=== PATIENT | female | born 1960 | race Caucasian/White ===

== ENCOUNTER 2017-06-18 07:44 | Day surgery (SDC) | payer BC ==
[2017-06-18 08:08] VITALS: BMI 36.1
[2017-06-18] MEDS ORDERED: PROPOFOL 20 ML ONE ×2 (09:11)
[2017-06-18 10:01] VITALS: TEMP 97.8
[2017-06-18 11:11] VITALS: BP 114/55; PULSE 47
--- NOTE | 2017-06-19 13:42 | PATH ---
Surgical Pathology Report Patient Name: LISSETTE FELTON [facility]. Rec. #: [id number] /Age/Gender: 1960 (Age: 57) / F Account: [id number] Location: U-ENDOSCOPY Taken: 06/18/2017 Received: 06/18/2017 Reported: 06/19/2017 Physicians: lEla Ruelas M.D. Specimen(s) Received A: BX PROXIMAL TRANSVERSE COLON POLYP B: BX RECTAL POLYP Clinical History Preoperative diagnosis: Screening Postoperative diagnosis: Diverticulosis, proximal transverse colon polyp and rectal polyp Final Diagnosis A. PROXIMAL TRANSVERSE COLON, POLYPS, BIOPSY: HYPERPLASTIC POLYPS. B. RECTUM, POLYP, BIOPSY: HYPERPLASTIC POLYP. Electronically Signed Maricel Lopez M.D. Gross Description A. Received in formalin, labeled "proximal transverse colon polyps" are 4 eaton, irregular portions of soft tissue ranging from 0.1-0.4 cm. in greatest dimension. The specimens are submitted in toto in one cassette. B. Received in formalin, labeled "biopsy rectal polyp" are 4 eaton, irregular portions of soft tissue ranging from 0.1-0.3 cm. in greatest dimension. The specimens are submitted in toto in one cassette. /06/18/2017 saudi06/18/2017
== END 2017-06-18 11:11 | disposition home or self-care (01) ==
LOC: JASU-ENDO 07:44
PROVIDERS: ATTEND Internal Medicine Gastroenterology
PROC: 0DBL8ZX Excision of Transverse Colon, Via Natural or Artificial Opening Endoscopic, Diagnostic (ICD-10-PCS; 2017-06-18)
PROC: 0DBP8ZX Excision of Rectum, Via Natural or Artificial Opening Endoscopic, Diagnostic (ICD-10-PCS; principal; 2017-06-18 09:00)
DX: Z12.11 Encounter for screening for malignant neoplasm of colon (principal); K63.5 Polyp of colon; K62.1 Rectal polyp; K57.30 Diverticulosis of large intestine without perforation or abscess without bleeding
CPT/HCPCS: 88305-TC

== ENCOUNTER 2018-11-13 12:49 | Inpatient (IN) | payer BC ==
[2018-11-13 13:20] VITALS: BMI 71.8
--- NOTE | 2018-11-13 13:23 | PDOC ---
History of Present Illness - General Chief Complaint: Irregular Heart Beat Stated Complaint: Abnormal Lab Results (Outside) Time Seen by Provider: 11/13/18 13:22 History Source: Patient Exam Limitations: No Limitations - History of Present Illness Initial Comments: 58 yo F w a hx of CAD, [place]-2000, hypothyroidism, HTN, and HLD presents to the ER from nuclear radiology secondary to results of an abnormal nuclear stress test which determined the patient has a large jennifer-lateral and inferior reversible ischemic perfusion defect. During the stress test, the patient experienced several runs of non-sustained V-Tach and was subsequently sent to the ER to be evaluated. The patient was receiving this stress test for Pre-Op cardiac clearance for an elective orthopedic surgery on her right ankle. The patient has been asymptomatic other than occasional palpitations. She denies having any recent chest pain, SOB, difficulty breathing, ankle/leg swelling, orthopnea, syncope, dyspnea on exertion, lightheadedness, or chest pain with physical activity PCP: Dr. Parker Lighting Fixture Installer: Formerly Charles. Hasn't seen a doc in 15 years. Allergies: NKA, NKDA Social Hx: Denies smoking, drinking, or other substance usage. PSH: Appendectomy Past History - Past Medical History Allergies/Adverse Reactions: Allergies Allergy/AdvReac Type Severity Reaction Status Date / Time No Known Allergies Allergy Verified 06/25/11 14:56 Home Medications: Ambulatory Orders Aspirin [ASA -] 325 mg PO ONCE 12/24/13 Levothyroxine [Synthroid -] 112 mcg PO DAILY 12/24/13 Metoprolol Succinate [Toprol Xl] 50 mg PO DAILY 12/24/13 Rosuvastatin Calcium [Crestor] 40 mg PO DAILY 12/24/13 Cholecalciferol (Vitamin D3) [Vitamin D3] 1,000 unit PO DAILY 06/18/17 Losartan 50Mg/Hctz 12.5MG [Hyzaar -] 1 tab PO DAILY 06/18/17 Cardiac Disorders: Yes ([place] (2003)) HTN: Yes Hypercholesterolemia: Yes Seizures: Yes - Surgical History Appendectomy: Yes - Immunization History Td Vaccination: No (UNKNOWN) - Suicide/Smoking/Psychosocial Hx Smoking Status: Yes Smoking History: Never smoked Have you smoked in the past 12 months: No Number of Cigarettes Smoked Daily: 20 'Breaking Loose' booklet given: 06/18/17 Hx Alcohol Use: No Drug/Substance Use Hx: No Substance Use Type: None Review of Systems - Review of Systems Able to Perform ROS?: Yes Comments:: CONSTITUTIONAL: No fever, no chills, no fatigue EYES: No visual changes ENT: No ear pain, no sore throat CARDIOVASCULAR: No chest pain, + palpitations RESPIRATORY: No cough, no SOB GI: No abdominal pain, no nausea, no vomiting, no constipation, no diarrhea GENITOURINARY: No dysuria, no frequency, no hematuria MUSKULOSKELETAL: No backpain, + joint pain, no myalgias SKIN: No rash NEURO: No headache *Physical Exam - Vital Signs Last Vital Signs Temp Pulse Resp BP Pulse Ox 97.9 F 50 L 20 175/58 H 100 11/13/18 12:53 11/13/18 12:53 11/13/18 12:53 11/13/18 12:53 11/13/18 12:53 - Physical Exam Comments: CONSTITUTIONAL: Well-appearing; well-nourished; in no apparent distress HEAD: Normocephalic; atraumatic EYES: PERRL; EOM intact ENMT: External appears normal; normal oropharynx NECK: Supple; non-tender; no cervical lymphadenopathy CARD: There is an S4 Gallop. Bradycardic rate, regular rhythm. RESP: CTAB. No wheezes, rhonchi, or rales ABD: Soft, non-distended; non-tender; no palpable organomegaly, no palpable hernias EXT: Normal ROM in all four extremities; non-tender to palpation; distal pulses intact SKIN: Warm, dry, no rash NEURO: No focal neurological deficiencies. ED Treatment Course - LABORATORY CBC & Chemistry Diagram: 11/13/18 14:10 11/13/18 14:10 Medical Decision Making - Medical Decision Making 58 yo F w a hx of CAD, [place]-2001, hypothyroidism, HTN, and HLD presents to the ER from nuclear radiology secondary to results of an abnormal nuclear stress test which determined the patient has a large jennifer-lateral and inferior reversible ischemic perfusion defect. During the stress test, the patient experienced several runs of non-sustained V-Tach and was subsequently sent to the ER to be evaluated. VS: bradycardic and hypertensive. MDM: Given this patient's perfusion defect this implies she needs a catheterization to resolve her reversible ischemic perfusion defect. Plan: Labs, EKG, Cardio consult, Admit. - Will discuss with PCP and pricing associate when patient should be given a cath for reperfusion. Cardio consult: Spoke with Dr. holguin who agrees patient needs a cath at some point. Recommends admission to the hospital. Spoke with Keith who accepted patient for admission. *DC/Admit/Observation/Transfer Diagnosis at time of Disposition: Myocardial perfusion defect, Ventricular tachycardia, non-sustained - Discharge Dispostion Condition at time of disposition: Stable Decision to Admit order: Yes - Referrals - Patient Instructions - Post Discharge Activity
--- NOTE | 2018-11-13 14:15 | PDOC ---
Documentation entered by Oscar Garces SCRIBE, acting as scribe for Reid Torres MD. Reid Torres MD: This documentation has been prepared by the Dez johnston Elijah, SCRIBE, under my direction and personally reviewed by me in its entirety. I confirm that the documentation accurately reflects all work, treatment, procedures, and medical decision making performed by me. Attending Attestation - Resident Resident Name: Bhupinder Bui - ED Attending Attestation I have performed the following: I have examined & evaluated the patient, The case was reviewed & discussed with the resident, I agree w/resident's findings & plan - HPI HPI: 11/13/18 14:18 The patient is a 58 year old female, with a significant PMH of CAD, hypothyroidism, Hypertension, Hyperlipidemia and [place]-2001 who presents to the ED results from an abnormal stress test. The patient has had multiple episodes of non-sustained V-Tach. While in the ED the patients only complains of some palpitations. The patient denies chest pain, shortness of breath, headache and dizziness. Denies fever, chills, nausea, vomiting, diarrhea and constipation. Denies dysuria, frequency, urgency and hematuria. Allergies: NKA - Physicial Exam PE: 11/13/18 14:13 patient is awake and alert, obese, in no distress normocephalic and atraumatic PERRLA, EOMI No JVD CTA RRR Lower extremity edema - Medical Decision Making 11/13/18 14:14 58-year-old female with history of CAD, hypertension, hypercholesterolemia referred to the ER from the cardiology department for a positive nuclear perfusion test and a run of nonsustained V. tach while undergoing preop for a surgical procedure. In the ER, patient is mildly hypertensive, bradycardic with a heart rate of 51, and is currently asymptomatic. EKG reveals sinus bradycardia without evidence of acute ischemia. Given the nuclear perfusion test findings and the presence of nonsustained ventricular tachycardia, will consult cardiology, will admit to telemetry.
[2018-11-13 14:38] LABS: INR 0.99 (0.83-1.09); PROTHROMBIN TIME (PATIENT) 11.7 SEC (9.7-13.0)
[2018-11-13 14:41] LABS: BASO % 0.4 % (0-2.0); EOS % 1.4 % (0-4.5); HEMATOCRIT 38.2 % (32.4-45.2); HEMOGLOBIN 12.4 GM/dL (10.7-15.3); LYMPH % 29.3 % (8-40); MCH 31.3 pg (25.7-33.7); MCHC 32.6 g/dl (32.0-36.0); MEAN CELL VOLUME 96.1 fl (80-96); MONO % 6.7 % (3.8-10.2); NEUT % 62.2 % (42.8-82.8); PLATELET COUNT 261 K/MM3 (134-434); RBC 3.97 M/mm3 (3.60-5.2); RDW 13.9 % (11.6-15.6); WHITE BLOOD COUNT 12.1 K/mm3 (4.0-10.0)
[2018-11-13] MEDS ORDERED: ALPRAZolam 0.25 MG TABLET PO ONE (14:58)
[2018-11-13 15:18] LABS: ALBUMIN 3.7 g/dl (3.4-5.0); ALK PHOS 60 U/L (45-117); ANION GAP 6 MMOL/L (8-16); BILIRUBIN,TOTAL 0.3 mg/dL (0.2-1); BLOOD UREA NITROGEN 12.9 mg/dL (7-18); CHLORIDE 110 mmol/L (98-107); CO2 27 mmol/L (21-32); CREATININE 0.6 mg/dL (0.55-1.3); GLUCOSE,RANDOM 129 mg/dL (74-106); MAGNESIUM 2.2 mg/dL (1.8-2.4); N-TERMINAL BNP 182.8 pg/ml (5-125); SGOT/AST 15 U/L (15-37); SGPT/ALT 23 U/L (13-61); SODIUM 143 mmol/L (136-145); TOT PROT 6.6 g/dl (6.4-8.2)
--- NOTE | 2018-11-13 15:30 | CON.CARD ---
Consult Consult Specialty:: Cardioglogy Reason for Consultation:: CAD - History of Present Illness Chief Complaint: Positive nuclear stress test History of Present Illness: This is a 58 year old female with a PMH significant for hypothyroidism, Hypertension, Hyperlipidemia, and smoking (continues to smoke). She has known CAD and is s/p [place] in 2000. She has a cardiac cath in [address] [facility] and she was told she had a "branch that was blocked," no stent was placed. She is in need of ankle surgery to repair a ligament and a tendon. As part of the pre-op evaluation she had a Lexiscan. During regadenosone infusion she became extremely symptomatic and had multiple runs of NSVT. The scan showed a large jennifer-lateral and an inferior reversible perfusion defect. Given the above we will transfer her to [facility] for a cardiac cath. - Alcohol/Substance Use Hx Alcohol Use: No - Smoking History Smoking history: Never smoked Have you smoked in the past 12 months: No Aproximately how many cigarettes per day: 20 Home Medications - Allergies Allergies/Adverse Reactions: Allergies Allergy/AdvReac Type Severity Reaction Status Date / Time No Known Allergies Allergy Verified 06/25/11 14:56 - Home Medications Home Medications: Ambulatory Orders Aspirin [ASA -] 325 mg PO ONCE 12/24/13 Levothyroxine [Synthroid -] 112 mcg PO DAILY 12/24/13 Metoprolol Succinate [Toprol Xl] 50 mg PO DAILY 12/24/13 Rosuvastatin Calcium [Crestor] 40 mg PO DAILY 12/24/13 Cholecalciferol (Vitamin D3) [Vitamin D3] 1,000 unit PO DAILY 06/18/17 Losartan 50Mg/Hctz 12.5MG [Hyzaar -] 1 tab PO DAILY 06/18/17 Review of Systems Unable to obtain ROS, reason: As per HPI Vital Signs: Vital Signs Temperature 97.9 F 11/13/18 12:53 Pulse Rate 50 L 11/13/18 12:53 Respiratory Rate 20 11/13/18 12:53 Blood Pressure 175/58 H 11/13/18 12:53 O2 Sat by Pulse Oximetry (%) 100 11/13/18 12:53 Constitutional: Yes: Well Nourished, No Distress Eyes: Yes: WNL HENT: Yes: WNL Neck: Yes: WNL Respiratory: Yes: Regular Gastrointestinal: Yes: Soft Cardiovascular: Yes: Regular Rate and Rhythm (NL S1S2 No MRHG) Extremities: Yes: WNL (Brace on right ankle) Edema: No Neurological: Yes: Alert, Oriented - Other Data Labs, Other Data: CBC, BMP 11/13/18 14:10 11/13/18 14:10 INR, PTT INR 0.99 (0.83-1.09) 11/13/18 14:10 Troponin, BNP 11/13/18 14:10 Troponin I < 0.02 B-Natriuretic Peptide 182.8 H Troponin, BNP 11/13/18 14:10 Troponin I < 0.02 B-Natriuretic Peptide 182.8 H Assessment/Plan 58 year old female with a PMH significant for hypothyroidism, Hypertension, Hyperlipidemia, and smoking (continues to smoke). She has known CAD and is s/p [place] in [place]. She has a cardiac cath in [address] [facility] and she was told she had a "branch that was blocked," no stent was placed. She is in need of ankle surgery to repair a ligament and a tendon. As part of the pre-op evaluation she had a Lexiscan. During regadenosone infusion she became extremely symptomatic and had multiple runs of NSVT. The scan showed a large jennifer-lateral and an inferior reversible perfusion defect. Given the above we will transfer her to [facility] for a cardiac cath. I spoke to the triage team at [facility] [phone] and they are working on bed availability. Continue at home meds ASA/Metoprolol/Losartan/Crestor/Synthroid
[2018-11-13] MEDS ORDERED: ALPRAZolam 0.25 MG TABLET ONE (15:37)
--- NOTE | 2018-11-13 16:51 | HP ---
Admitting History and Physical - Primary Care Physician PCP: Aria Parker - Admission History of Present Illness: Patient is a 58 y/o female patient with past medical history of [place] 2000, Hypothyroidism, HTN, HLD, and smoking. Patient had a stress test done today for cardiac clearance for R ankle surgery. During stress test when she was receiving the infusion patient was noted with runs of v-tach. The scan also showed large jennifer-lateral and inferior reversible perfusion defect. Prior to stress test today patient denied chest pain, SOB, dyspnea, or CHASE. History Source: Patient Limitations to Obtaining History: No Limitations - Past Medical History Cardiovascular: Yes: HTN, Hyperlipdemia, [place] (2000) Endocrine: Yes: Hypothyroidism - Past Surgical History Past Surgical History: Yes: Appendectomy - Smoking History Smoking history: Never smoked Have you smoked in the past 12 months: No Aproximately how many cigarettes per day: 20 - Alcohol/Substance Use Hx Alcohol Use: No - Social History Usual Living Arrangement: Yes: With Spouse ADL: Independent History of Recent Travel: No Home Medications - Allergies Allergies/Adverse Reactions: Allergies Allergy/AdvReac Type Severity Reaction Status Date / Time No Known Allergies Allergy Verified 06/25/11 14:56 - Home Medications Home Medications: Ambulatory Orders Aspirin [ASA -] 325 mg PO ONCE 12/24/13 Levothyroxine [Synthroid -] 112 mcg PO DAILY 12/24/13 Metoprolol Succinate [Toprol Xl] 50 mg PO DAILY 12/24/13 Rosuvastatin Calcium [Crestor] 40 mg PO DAILY 12/24/13 Cholecalciferol (Vitamin D3) [Vitamin D3] 1,000 unit PO DAILY 06/18/17 Losartan 50Mg/Hctz 12.5MG [Hyzaar -] 1 tab PO DAILY 06/18/17 Review of Systems - Review of Systems Constitutional: reports: No Symptoms Eyes: reports: No Symptoms HENT: reports: No Symptoms Neck: reports: No Symptoms Cardiovascular: reports: Palpitations Respiratory: reports: No Symptoms Gastrointestinal: reports: No Symptoms Genitourinary: reports: No Symptoms Breasts: reports: No Symptoms Reported Musculoskeletal: reports: No Symptoms Integumentary: reports: No Symptoms Neurological: reports: No Symptoms Endocrine: reports: No Symptoms Hematology/Lymphatic: reports: No Symptoms Psychiatric: reports: No Symptoms Physical Examination Vital Signs: Vital Signs Temperature 97.9 F 11/13/18 12:53 Pulse Rate 50 L 11/13/18 12:53 Respiratory Rate 20 11/13/18 12:53 Blood Pressure 175/58 H 11/13/18 12:53 O2 Sat by Pulse Oximetry (%) 100 11/13/18 12:53 Constitutional: Yes: No Distress, Calm Eyes: Yes: Conjunctiva Clear HENT: Yes: Atraumatic Neck: Yes: Supple Cardiovascular: Yes: Bradycardia Respiratory: Yes: Regular, CTA Bilaterally Gastrointestinal: Yes: Normal Bowel Sounds, Soft Musculoskeletal: Yes: WNL Extremities: Yes: WNL Edema: No Neurological: Yes: Alert, Oriented Psychiatric: Yes: Alert, Oriented Labs: CBC, BMP 11/13/18 14:10 11/13/18 14:10 Problem List - Problems (1) Myocardial perfusion defect Assessment/Plan: -Cardiology consult -Patient to be transferred to [facility] for Cardiac Catheterization with accepting attending Dr Angelito Arredondo Code(s): I99.8 - OTHER DISORDER OF CIRCULATORY SYSTEM
--- NOTE | 2018-11-13 16:59 | DS ---
Physical Examination Vital Signs: Vital Signs Temperature 97.9 F 11/13/18 12:53 Pulse Rate 50 L 11/13/18 12:53 Respiratory Rate 20 11/13/18 12:53 Blood Pressure 175/58 H 11/13/18 12:53 O2 Sat by Pulse Oximetry (%) 100 11/13/18 12:53 Findings/Remarks: Patient is a 58 y/o female patient with past medical history of [place] 2000, Hypothyroidism, HTN, HLD, and smoking. Patient had a stress test done today for cardiac clearance for R ankle surgery. During stress test when she was receiving the infusion patient was noted with runs of v-tach. The scan also showed large jennifer-lateral and inferior reversible perfusion defect. Prior to stress test today patient denied chest pain, SOB, dyspnea, or CHASE. Constitutional: Yes: No Distress, Calm Eyes: Yes: Conjunctiva Clear HENT: Yes: Atraumatic Neck: Yes: Supple Cardiovascular: Yes: Bradycardia Respiratory: Yes: Regular, CTA Bilaterally Gastrointestinal: Yes: Normal Bowel Sounds, Soft Musculoskeletal: Yes: WNL Extremities: Yes: WNL Edema: No Neurological: Yes: Alert, Oriented Psychiatric: Yes: Alert, Oriented Labs: CBC, BMP 11/13/18 14:10 11/13/18 14:10 Discharge Summary Reason For Visit: MYOCARDIAL PERFUSION DEFECT Current Active Problems Myocardial perfusion defect (Acute) Ventricular tachycardia, non-sustained (Acute) Hospital Course: see progress notes Troponin, BNP 11/13/18 14:10 Troponin I < 0.02 B-Natriuretic Peptide 182.8 H Laboratory Tests 11/13/18 11/13/18 11/13/18 14:10 14:10 14:10 WBC 12.1 H RBC 3.97 Hgb 12.4 Hct 38.2 MCV 96.1 H MCH 31.3 MCHC 32.6 RDW 13.9 Plt Count 261 MPV 11.0 Absolute Neuts (auto) 7.6 Neutrophils % 62.2 Lymphocytes % 29.3 Monocytes % 6.7 Eosinophils % 1.4 Basophils % 0.4 Nucleated RBC % 0 PT with INR 11.70 INR 0.99 PTT (Actin FS) Sodium 143 Potassium 4.0 Chloride 110 H Carbon Dioxide 27 Anion Gap 6 L BUN 12.9 Creatinine 0.6 Est GFR (CKD-EPI)AfAm 116.45 Est GFR (CKD-EPI)NonAf 100.47 Random Glucose 129 H Calcium 9.0 Magnesium 2.2 Total Bilirubin 0.3 AST 15 ALT 23 Alkaline Phosphatase 60 Creatine Kinase 93 Troponin I < 0.02 B-Natriuretic Peptide 182.8 H Total Protein 6.6 Albumin 3.7 11/13/18 14:10 WBC RBC Hgb Hct MCV MCH MCHC RDW Plt Count MPV Absolute Neuts (auto) Neutrophils % Lymphocytes % Monocytes % Eosinophils % Basophils % Nucleated RBC % PT with INR INR PTT (Actin FS) 39.5 H Sodium Potassium Chloride Carbon Dioxide Anion Gap BUN Creatinine Est GFR (CKD-EPI)AfAm Est GFR (CKD-EPI)NonAf Random Glucose Calcium Magnesium Total Bilirubin AST ALT Alkaline Phosphatase Creatine Kinase Troponin I B-Natriuretic Peptide Total Protein Albumin Condition: Stable - Instructions Diet, Activity, Other Instructions: follow up with PMD 48 hrs after discharge follow up with charge weigher 1 week after discharge return to ER if develop severe chest pain, respiratory distress Disposition: TRANSFER ACUTE CARE/OTHER HOSP - Home Medications Comprehensive Discharge Medication List: Ambulatory Orders Aspirin [ASA -] 325 mg PO ONCE 12/24/13 Levothyroxine [Synthroid -] 112 mcg PO DAILY 12/24/13 Metoprolol Succinate [Toprol Xl] 50 mg PO DAILY 12/24/13 Rosuvastatin Calcium [Crestor] 40 mg PO DAILY 12/24/13 Cholecalciferol (Vitamin D3) [Vitamin D3] 1,000 unit PO DAILY 06/18/17 Losartan 50Mg/Hctz 12.5MG [Hyzaar -] 1 tab PO DAILY 06/18/17
[2018-11-13 18:29] VITALS: BP 142/78; PULSE 56; TEMP 98
[2018-11-14] MEDS ORDERED: LEVOTHYROXINE NA 112 MCG TABLET (FP) PO SCH (07:00)
[2018-11-14] MEDS ORDERED: LOSARTAN 50MG/HCTZ 12.5MG 1 TAB (FP) PO SCH (10:00)
[2018-11-14] MEDS ORDERED: CHOLECALCIFEROL (VIT D3) 1,000 UNIT (25 MCG) TABLET PO SCH (10:00)
[2018-11-14] MEDS ORDERED: ASPIRIN COATED 81 MG TABLET.EC PO SCH (10:00)
--- NOTE | 2018-11-14 11:46 | EKG ---
Test Reason : Blood Pressure : / mmHG Vent. Rate : 051 BPM Atrial Rate : 051 BPM P-R Int : 192 ms QRS Dur : 084 ms QT Int : 440 ms P-R-T Axes : 064 049 043 degrees QTc Int : 405 ms POOR DATA QUALITY, INTERPRETATION MAY BE ADVERSELY AFFECTED SINUS BRADYCARDIA SEPTAL INFARCT , AGE UNDETERMINED ABNORMAL ECG WHEN COMPARED WITH ECG OF 19-NOV-2001 15:35, NO SIGNIFICANT CHANGE WAS FOUND Confirmed by SAMIA SHUKLA, DADA ([id number]) on 11/14/2018 11:46:23 AM Referred By: Confirmed By:DADA GRACIA MD
[2018-11-14] MEDS ORDERED: ROSUVASTATIN CA 20 MG TABLET (FP) PO SCH (22:00)
== END 2018-11-13 18:34 | disposition short-term general hospital (02) | DRG 303 ==
LOC: JER 12:49 → JERBED 15:44
PROVIDERS: ADMIT Family Medicine; ATTEND Family Medicine
DX: I25.10 Atherosclerotic heart disease of native coronary artery without angina pectoris (principal); I47.2 Ventricular tachycardia; Z68.45 Body mass index [BMI] 70 or greater, adult; I99.8 Other disorder of circulatory system; E03.9 Hypothyroidism, unspecified; I10 Essential (primary) hypertension; E78.5 Hyperlipidemia, unspecified; I25.2 Old myocardial infarction; R00.1 Bradycardia, unspecified; E66.9 Obesity, unspecified
CPT/HCPCS: 36415; 71046-TC-FY; 78452-TC; 80053; 82550; 83735; 83880; 84484; 85025; 85610; 85730; 86850; 86900; 86901; 93005; 93010; 93017; 99283-25; A9502; C1887; J1245